=== PATIENT | female | born 1960 | race Caucasian/White ===

== ENCOUNTER 2024-05-25 09:47 | Day surgery (SDC) | payer BC ==
[~2024-05-25] VITALS: Ht 167.6 cm; Wt 55.5 kg
[~2024-05-25 09:47] MED LIST: AMBIEN5 MG PO; CENTRUM SILVER1 EAC5 PO; DICLOFENAC SODI75 MG PO; FERROUS SULFAT325 MG PO; HYDROCODON-ACE1 EA10 PO; IBLOOD GLUCOSE TEST STRIP 1 EA TEST VI PRN; LACTATED RINGER'S 1,000 ML IV SCH; LEVOTHYROXINE137 MC1 PO; LIDOCAINE HCL 1% 5 ML SDV INJ ONE; LIDOCAINE HCL 4% 50 ML BTL TOP SCH; LISINOPRIL20 MG PO; TART CHERRY CA1 EACH PO; TUMS300 MG PO; TURMERIC500 M2 PO
[2024-05-25 10:03] VITALS: BP 154/73
[2024-05-25] MEDS ORDERED: [UNRECOGNIZED DRUG - OTHER] PO (10:07)
[2024-05-25] MEDS ORDERED: VITAMIN C 500500 M1 PO (10:08)
[2024-05-25] MEDS ORDERED: fentaNYL citrate 100 MCG/2 ML VIAL ONE (10:42)
[2024-05-25] MEDS ORDERED: MIDAZOLAM HCL 5 MG/5 ML VIAL ONE (10:42)
--- NOTE | 2024-05-25 11:22 | NUR ---
05/25/24 1122 Smita Sebastian 1117- PT ARRIVES TO PACU REACTIVE TO VOICE. PT UPDATED THAT HER PROCEDURE IS COMPLETE. PT FALLS BACK TO SLEEP WHEN NOT BEING TALKED TO. RESP EVEN AND UNLABORED. OXYGEN SAT HIGH 90'S TO 100% ON 3L VIA CO2 NC.
[2024-05-25 12:03] VITALS: BP 136/59
--- NOTE | 2024-05-28 13:20 | OR ---
[facility] [address] [place], [place] [address] Signed DATE OF OPERATION: 05/25/2024 SURGEON: David Yang MD PREOPERATIVE DIAGNOSES: Anemia, weight loss 35 pounds, postprandial abdominal pain and CT findings suggestive of possible ulcer or neoplasm. POSTOPERATIVE DIAGNOSIS: Neoplasm of proximal stomach including area of GE junction. PROCEDURE: Esophagogastroduodenoscopy with biopsy. ANESTHESIA: Intravenous sedation; fentanyl 100 mcg and Versed 3 mg. INDICATION: This 64-year-old white woman is a patient of Dr. Jb Ramirez. The patient is noted to have anemia, weight loss, epigastric pain and a CT scan performed on May 10 under the direction of Dr. Ramirez showing possible ulcer or neoplasm of the body of the stomach. The patient has lost 35 pounds, having gone from 160 to 125 pounds over a few months. She is admitted to undergo upper endoscopy to better characterize the problem and in particular to assess for neoplastic disease. The risk of bleeding, infection, perforation, and so forth were reviewed with her. She understands and wished to proceed. FINDINGS: Indeed there was a gastric neoplasm. This was in the main body of the stomach with some amount of antral sparing and extending up to the GE junction. It did not extend into the esophagus so far as could be told. It is certainly consistent with adenocarcinoma, though the possibility of lymphoma remains. CLOtest was negative 15 minutes post procedure. The duodenum and esophageal mucosa proper were normal. PROCEDURE IN DETAIL: The patient was brought to the endoscopy suite and placed in the lateral decubitus position after undergoing topical lidocaine hypopharyngeal anesthesia. A bite block was placed. An Olympus video upper endoscope was passed in the hypopharynx. The vocal cords were normal. Scope was advanced to the esophagus, throughout its length it was normal. Scope was passed in the stomach without problem. Immediately noted was a bulky flattened and somewhat ulcerated and friable neoplasm of the mid to upper stomach. The Electronically Signed By: DAVID YANG MD 05/28/24 1320 PATIENT NAME: ANIBAL TATE OPERATIVE REPORT DATE OF : 60 REPORT #: [id number] PHYSICIAN: DAVID YANG MD PCP: JB RAMIREZ MD REPORT IS CONFIDENTIAL AND NOT TO BE RELEASED WITHOUT AUTHORIZATION [facility] [address] [place], [place] [address] Signed scope was passed beyond this to the antrum which seemed reasonably normal. The pylorus was normal. Scope was passed through into the duodenal which was normal. The scope was withdrawn and biopsies taken of the antrum for both JACKSON and pathologic testing. Retroflexed view was undertaken confirming the ulcerated neoplastic process extending up to the GE junction. The scope was withdrawn and positioned allowing for multiple biopsies of the central portion of the mass which was friable and easily made to bleed. The scope was withdrawn and close inspection of the GE junction proper did show involvement in this area, though the mucosa of the esophagus proper appeared normal. Biopsies were obtained in the distal most esophagus at the GE junction and esophageal mucosa proximal to that. Further withdrawal of scope showed no sign of other abnormality. The scope was fully withdrawn and removed. The patient was taken to the recovery room in good condition. 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 PLAN: Depending on findings of the biopsy, further steps for management will be in order. We will obtain a chest x-ray today to assess for any metastatic disease to the lungs, which would preclude resectional therapy. MD CLARA Venegas/MODL /[id number] cc: Jb Ramirez MD Copies: JB RAMIREZ MD ~ Electronically Signed By: DAVID YANG MD 05/28/24 1320 PATIENT NAME: ANIBAL TATE OPERATIVE REPORT DATE OF : 60 REPORT #: [id number] PHYSICIAN: DAVID YANG MD PCP: JB RAMIREZ MD REPORT IS CONFIDENTIAL AND NOT TO BE RELEASED WITHOUT AUTHORIZATION
--- NOTE | 2024-06-01 15:35 | PATH ---
[facility] [address] [place], [place] [address] Signed THIS IS AN ADDENDUM REPORT SPECIMEN(S): A ANTRUM/PYLORUS BIOPSY SPECIMEN(S): B PROXIMAL GASTRIC BIOPSY SPECIMEN(S): C GE JUNCTION SPECIMEN(S): D ESOPHAGEAL BIOPSY AT 35 CM SPECIMEN SOURCE: A. ANTRUM/PYLORUS BIOPSY B. PROXIMAL GASTRIC BIOPSY C. GE JUNCTION D. ESOPHAGEAL BIOPSY AT 35 CM CLINICAL HISTORY: Anemia, weight loss, epigastric pain, neoplasm proximal stomach FINAL PATHOLOGIC DIAGNOSIS: A. Antrum/pylorus biopsy: - Antral mucosa with superficial mild chronic inflammation. - Helicobacter pylori immunostain is negative for organisms. B. Proximal gastric biopsy: - Suspicious for carcinoma in ulcer base. - Gastric mucosa with mild foveolar hyperplasia and mild chronic inflammation. - A Helicobacter pylori immunostains is negative for organisms. - A cytokeratin AE1/AE3 immunostain is positive in cells within the ulcer and inflammation, suspicious for carcinoma. C. GE junction: - Positive for invasive carcinoma (see comment). - Negative for specialized intestinal metaplasia. - A Cytokeratin AE1/AE3 immunostain highlights the tumor cells. D. Esophageal biopsy at 35 cm: - Benign esophageal mucosa, negative for increased epithelial eosinophils. COMMENT: (Specimen C) The histologic and immunohistochemical features are compatible with Diffuse-type gastric adenocarcinoma. As part of the [facility] [employer] Program, the case has been reviewed by a second pathologist. Microsatellite testing by immunohistochemistry is pending and will be reported in an addendum. Diagnostic notification to the office of Dr. Zamudio is initiated by PATIENT NAME: ANIBAL TATE PATHOLOGY DATE OF : 60 REPORT #: [id number] PHYSICIAN: MAR CARRENO PCP: JB LAST MD REPORT IS CONFIDENTIAL AND NOT TO BE RELEASED WITHOUT AUTHORIZATION [facility] [address] [place], [place] [address] Signed Ary and will be reported separately. JVR:[facility] MICROSCOPIC EXAMINATION: Histologic sections of all submitted blocks are examined by light microscopy. These findings, together with the gross examination, support the pathologic diagnosis. A. A Helicobacter pylori immunostain is performed with appropriate positive and negative controls on block A1 and is negative for organisms. A cytokeratin AE1/AE3 immunostain is performed with appropriate controls on block A1 and is negative for occult carcinoma. B. A Helicobacter pylori immunostain is performed with appropriate positive and negative controls on block B1 and is negative for organisms. A cytokeratin AE1/AE3 immunostain is performed with appropriate controls on block B1 and highlights scattered cells suspicious for carcinoma. C. Immunostains are performed with appropriate controls on block C1 and shows the following: - CDX2: Positive in tumor nuclei. - Cytokeratin 7: Negative in tumor cells. - Chromogranin: Negative in tumor cells. - Synaptophysin: Negative in tumor cells. - P63: Negative in tumor nuclei. JVR:jc GROSS DESCRIPTION: A. The specimen, labeled and designated "Post, antrum biopsy," is received in formalin and consists of one lou soft tissue fragment, 0.2 cm. Entirely submitted in (A1). B. The specimen, labeled and designated "Post, proximal gastric mass biopsy," is received in formalin and consists of five lou soft tissue fragments, ranging from 0.1-0.3 cm. Entirely submitted in (B1). C. The specimen, labeled and designated "Post, GE junction biopsy," is received in formalin and consists of seven lou soft tissue fragments, ranging from 0.1 to 0.2 cm. Entirely submitted in (C1). D. The specimen, labeled and designated "Post, esophagus biopsy at 35 cm," is received in formalin and consists of one lou soft tissue fragment, 0.4 cm. Entirely submitted in (D1). JS (under the direct supervision of a pathologist) PATIENT NAME: ANIBAL TATE PATHOLOGY DATE OF : 60 REPORT #: [id number] PHYSICIAN: MAR PATHOLOGY PCP: JB LAST MD REPORT IS CONFIDENTIAL AND NOT TO BE RELEASED WITHOUT AUTHORIZATION [facility] [address] [place] [id number] Signed The Gross Description was prepared using a voice recognition system. The report was reviewed for accuracy; however, sound-alike word errors, addition and/or deletions may occur. If there is any question about this report, please contact Client Services. ADDITIONAL NOTES: Immunohistochemical and/or in situ hybridization studies were performed on this case with the appropriate positive controls that react as expected. This test was developed and its performance characteristics determined by [facility]. It has not been cleared or approved by the U.S. Food and Drug Administration. The FDA has determined that such clearance or approval is not necessary. This test is used for clinical purposes. It should not be regarded as investigational or for research. [facility] is certified under the Clinical Laboratory Improvement Amendments of 1988 (CLIA) as qualified to perform high complexity clinical laboratory testing. This assay has not been validated for specimens that have been decalcified. PERFORMING LABORATORY: Technical component was performed by [facility], [address] [place] [address] (CLIA# [id number]). Professional interpretation was performed by [facility], [address] [place], [place] [address], [place] [address] (CLIA#: [id number]). COMMENT: Tumor cells show no loss of nuclear expression of MMR proteins. This correlates with a low probability of microsatellite instability. However, if there is a high clinical suspicion for Elena syndrome (hereditary non-polyposis colorectal carcinoma syndrome) in this patient, additional testing should be considered. Please contact [facility] if such testing is indicated. JVR:cml ADDITIONAL NOTES: Immunohistochemical and/or in situ hybridization studies were performed on this case with the appropriate positive controls that react as expected. This test was developed and its performance characteristics determined by [facility]. It has not been cleared or approved by the U.S. Food and Drug Administration. The FDA has determined that such clearance or approval is not necessary. This test is used for clinical purposes. It should not be regarded PATIENT NAME: ANIBAL TATE PATHOLOGY DATE OF : 60 REPORT #: [id number] PHYSICIAN: MAR CARRENO PCP: JB LAST MD REPORT IS CONFIDENTIAL AND NOT TO BE RELEASED WITHOUT AUTHORIZATION [facility] [address] [place], [place] [address] Signed as investigational or for research. [facility] is certified under the Clinical Laboratory Improvement Amendments of 1988 (CLIA) as qualified to perform high complexity clinical laboratory testing. REASON FOR ADDENDUM: To add results of additional testing. ADDENDUM PATHOLOGIC DIAGNOSIS: GE junction, diffuse type adenocarcinoma, microsatellite instability testing by IHC: - MLH1: Intact nuclear expression. - MSH2: Intact nuclear expression. - MSH6: Intact nuclear expression. - PMS2: Intact nuclear expression. INTERPRETATION: Normal pattern. ADDENDUM MICROSCOPIC EXAMINATION: A panel of four antibodies is selected which will detect 95% of microsatellite unstable carcinomas. Testing is performed at the request of Jamil Mcallister MD. Block: C1. Recut HE slide is prepared from the block. The presence of neoplastic glands and non-neoplastic internal control glands or stroma is confirmed. Internal control cells for MLH1, MSH2, PMS2 and MSH6 are positive. Neoplastic gland cells show the following: - MLH1: Positive. - MSH2: Positive. - MSH6: Positive. - PMS2: Positive. JVR:cml [place]. Professional interpretation was performed by [facility], [address] [place] [id number] (CLIA#: [id number]). Diagnostician: Jamil Mcallister MD Pathologist Electronically Signed 06/01/2024 Copies: PATIENT NAME: ANIBAL TATE DAAN PATHOLOGY DATE OF : 60 REPORT #: [id number] PHYSICIAN: MAR PATHOLOGY PCP: JB LAST MD REPORT IS CONFIDENTIAL AND NOT TO BE RELEASED WITHOUT AUTHORIZATION [address] [place] [address] Signed ~ PATIENT NAME: ANIBAL TATE DANA PATHOLOGY DATE OF : 60 REPORT #: [id number] PHYSICIAN: MAR PATHOLOGY PCP: JB LAST MD REPORT IS CONFIDENTIAL AND NOT TO BE RELEASED WITHOUT AUTHORIZATION
== END 2024-05-25 12:11 | disposition home or self-care (01) ==
LOC: DS 09:47
PROVIDERS: ATTEND Surgery
PROC: 0DB38ZX Excision of Lower Esophagus, Via Natural or Artificial Opening Endoscopic, Diagnostic (ICD-10-PCS; 2024-05-25)
PROC: 0DB48ZX Excision of Esophagogastric Junction, Via Natural or Artificial Opening Endoscopic, Diagnostic (ICD-10-PCS; 2024-05-25)
PROC: 0DB98ZX Excision of Duodenum, Via Natural or Artificial Opening Endoscopic, Diagnostic (ICD-10-PCS; principal; 2024-05-25 10:45)
DX: C16.0 Malignant neoplasm of cardia (principal); K31.89 Other diseases of stomach and duodenum; D64.9 Anemia, unspecified; R63.4 Abnormal weight loss; E03.9 Hypothyroidism, unspecified; I10 Essential (primary) hypertension; Z68.1 Body mass index [BMI] 19.9 or less, adult; Z79.890 Hormone replacement therapy; Z79.899 Other long term (current) drug therapy
CPT/HCPCS: 71045; 99153; G0500; J2250; J3010; J7121

== ENCOUNTER 2024-06-12 07:54 | Day surgery (SDC) | payer BC ==
[~2024-06-12] VITALS: Ht 167.6 cm; Wt 55.0 kg
[~2024-06-12 07:54] MED LIST changes: +CEFAZOLIN SODIUM 2 GM/20 ML SYR IV SCH; +DEXAMETHASONE SOD PHOS 4 MG/ML VIAL ONE; +FAMOTIDINE 20 MG/ 2 ML VIAL ONE; +HEParin SOD (PORCINE) 5,000 UNIT/0.5 ML SYR SUB-Q SCH; +KETOROLAC TROMETHAMINE 30 MG/ML VIAL ONE; +LACTATED RINGER'S 1,000 ML IV ONE; -LEVOTHYROXINE137 MC1 PO; +LEVOTHYROXINE150 MC1 PO; +LIDOCAINE HCL 4% 5 ML AMP ONE; -LIDOCAINE HCL 4% 50 ML BTL TOP SCH; +METOCLOPRAMIDE HCL 10 MG/2 ML SDV ONE; +MIDAZOLAM HCL 2 MG/2 ML VIAL ONE; +ROCURONIUM BROMIDE 50 MG/5 ML SYR ONE; +SUCCINYLCHOLINE IN 0.9% NACL 200 MG/10 ML SYRINGE ONE; +SUGAMMADEX SODIUM 200 MG/2 ML ML ONE; +VITAMIN C 500500 M1 PO; +[UNRECOGNIZED DRUG - OTHER] PO; +fentaNYL citrate 100 MCG/2 ML VIAL ONE; +ondansetron HCL 4 MG/2 ML VIAL ONE; +propofoL 200 MG/20 ML VIAL ONE
[2024-06-12 08:28] VITALS: BP 130/79
[2024-06-12] MEDS ORDERED: PROCHLORPERAZINE EDISYLATE 10 MG/2 ML VIAL IV PRN (08:45)
[2024-06-12] MEDS ORDERED: NALOXONE HCL 0.4 MG SYR IV PRN ×2 (08:45→10:45)
[2024-06-12] MEDS ORDERED: MORPHINE SULFATE 10 MG/ML VIAL IV PRN (08:45)
[2024-06-12] MEDS ORDERED: droPERidol 5 MG/2 ML VIAL IV PRN (08:45)
[2024-06-12] MEDS ORDERED: METOCLOPRAMIDE HCL 10 MG/2 ML SDV IV PRN (08:45)
[2024-06-12] MEDS ORDERED: IBLOOD GLUCOSE TEST STRIP 1 EA TEST VI PRN (08:45)
[2024-06-12] MEDS ORDERED: ondansetron HCL 4 MG/2 ML VIAL IV PRN (08:45)
[2024-06-12] MEDS ORDERED: fentaNYL citrate 50 MCG/ML SDV IV PRN (08:45)
[2024-06-12 09:16] LABS: HEMATOCRIT 28.7 % (35.0-50.0); HEMOGLOBIN 8.8 g/dL (12.0-18.0); MCH 20.3 (27-36); MCHC 30.5 g/dl (30-36); MCV 66.5 fl (81-99); PLATELET COUNT 412 K/uL (140-440); RBC 4.32 M/ul (4.3-5.7)
[2024-06-12 09:25] LABS: EOSINOPHILS, MANUAL DIFF 1; LYMPHOCYTES, MANUAL DIFF 17; MONOCYTES, MANUAL DIFF 4; NEUTROPHILS, MANUAL DIFF 78
[2024-06-12] MEDS ORDERED: ePHEDrine sulfate 50 MG/ML AMP ONE (09:43)
--- NOTE | 2024-06-12 10:36 | NUR ---
06/12/24 Shayan6 Beverley Rehman 1029-PATIENT ARRIVED TO PACU ON 6L MASK NONAROUSABLE RN DOING JAW THRUST TO MAINTAIN OPEN AIRWAY. ORAL AIRWAY IN PLACE. RR EVEN. SR HR 80'S. IVF INFUSING. 3 LAP SITES TO ABDOMEN INTACT.
[2024-06-12] MEDS ORDERED: OXYCODONE/APAP 7.5/325 TAB PO PRN (10:45)
[2024-06-12] MEDS ORDERED: IBUPROFEN 600 MG TAB PO PRN (10:45)
[2024-06-12] MEDS ORDERED: LACTATED RINGER'S 1,000 ML IV SCH (10:45)
[2024-06-12] MEDS ORDERED: ACETAMINOPHEN 500 MG TAB PO PRN (10:45)
[2024-06-12] MEDS ORDERED: ACETAMINOPHEN500 MG PO (10:47)
[2024-06-12] MEDS ORDERED: OXYCODON-ACETA1 EAC2 PO (10:48)
[2024-06-12] MEDS ORDERED: PROTONIX40 MG PO (10:48)
[2024-06-12 11:15] VITALS: BP 132/73
--- NOTE | 2024-06-12 12:07 | NUR ---
LE 1150 PT C/O ABD PAIN 04/18. WATER AND APPLESAUCE GIVEN. 1200 OXYGEN TURNED OFF. 1201 ONE PERCOCET 7.5/325 GIVEN PO. 1206 OXYGEN SATS 100% ON RA. OXYGEN REMOVED PER PT REQUEST.
[2024-06-12 12:20] VITALS: BP 112/75
[2024-06-12] MEDS ORDERED: ondansetron HCL 4 MG/2 ML VIAL IV ONE (14:00)
--- NOTE | 2024-06-12 15:12 | NUR ---
1115: PATIENT BACK IN DAY SURGERY ROOM FROM PACU. DROWSY. PATIENT WILL WAKE TO VOICE, BUT UNABLE TO STAY AWAKE. RATES PAIN 5/10 IN ABDOMEN. VS CHECKED. ABDOMINAL SITES WITH SMALL AMOUNT OF RED DRAINAGE AT EACH SITE. SCDs ON. IV SITE WNL. DAUGHTER AT BEDSIDE. PATIENT RESTING. CALL LIGHT WITHIN REACH. 1220: PATIENT MORE AWAKE AND ALERT. STATES PAIN IMPROVING SINCE PAIN PILL ADMIN. TOLERATING APPLESAUCE AND WATER. DAUGHTER AT BEDSIDE. CALL LIGHT WITHIN REACH.
--- NOTE | 2024-06-12 15:23 | NUR ---
1250: PATIENT ASSISTED OOB AND TO BATHROOM. VOID WITHOUT DIFFICULTY. GAIT STEADY TO AND FROM BATHROOM. PATIENT REQUESTS MORE TIME TO REST BEFORE GETTING DRESSED. PATIENT BACK IN BED. CALL LIGHT WITHIN REACH. DAUGHTER AT BEDSIDE. 1310: DISCHARGE INSTRUCTIONS GIVEN TO PATIENT AND DAUGHTER. 1340: PATIENT ATTEMPTED TO GET DRESSED, BUT THEN HAD ONSET OF NAUSEA WITH DRY HEAVES. DR. YANG NOTIFIED. NEW ORDER RECEIVED FOR IV ZOFRAN. 1400: IV ZOFRAN GIVEN SLOW IVP. IV FLUSHED, THEN DC'D WNL. TIP INTACT. DRESSING APPLIED. 1405: PATIENT DISCHARGED TO HOME WITH DAUGHTER VIA WHEELCHAIR.
--- NOTE | 2024-06-26 15:47 | PATH ---
[facility] [address] [facility] [place], [place] [address] Signed SPECIMEN(S): A STOMACH BIOPSY SPECIMEN(S): B OMENTUM BIOPSY SPECIMEN(S): C DIAPHRAM BIOPSY SPECIMEN SOURCE: A. STOMACH BIOPSY B. OMENTUM BIOPSY C. DIAPHRAM BIOPSY CLINICAL HISTORY: Adenocarcinoma of stomach. FINAL PATHOLOGIC DIAGNOSIS: A. Stomach biopsy: - Adenocarcinoma with infiltration of the muscularis propria. B. Omentum biopsy: - Adenocarcinoma consistent with that noted in the stomach biopsy. C. Diaphragm biopsy: - Adenocarcinoma with focal lymphovascular involvement, similar to that noted in specimens A and B. COMMENT: Microsatellite Instability Testing by Immunohistochemistry was performed on the previous biopsy and showed a "Normal Pattern" ([id number]). As part of [facility] Quality Improvement Program, this case was reviewed by another member of our pathology staff. JVR:BRADEN:shannan:genna MICROSCOPIC EXAMINATION: Histologic sections of all submitted blocks are examined by light microscopy. These findings, together with the gross examination, support the pathologic diagnosis. Immunostains are performed with appropriate controls and show the following: Block A1: - CDx2: Positive in tumor nuclei. - Cytokeratin AE1/AE3: Positive in tumor cells. - Synaptophysin: Negative in tumor cells. - Chromogranin: Negative in tumor cells. Block B1: - Cytokeratin AE1/AE3: Positive in tumor cells. - CDx2: Positive in tumor nuclei. PATIENT NAME: ANIBAL TATE DANA PATHOLOGY DATE OF : 60 REPORT #: [id number] PHYSICIAN: MAR CARRENO PCP: JB LAST MD REPORT IS CONFIDENTIAL AND NOT TO BE RELEASED WITHOUT AUTHORIZATION [facility] [address] [place], [place] [address] Signed Block C1: - Cytokeratin AE1/AE3: Positive in tumor cells. - CDx2: Positive in tumor nuclei. JVR:shannan GROSS DESCRIPTION: A. The specimen, labeled and designated "Post, stomach biopsy," is received in formalin and consists of three pink-lou, soft tissue fragments that measure 0.1 cm in greatest dimension each. Specimen is inked with eosin. Entirely submitted in (A1). B. The specimen, labeled and designated "Post, omentum biopsy," is received in formalin and consists of five pink-lou, needle core tissue fragments that range in size from 0.1 to 0.6 cm in length and up to 0.1 cm in diameter. Specimen is inked with eosin. Entirely submitted in (B1-B2). C. The specimen, labeled and designated "Post, diaphragm biopsy," is received in formalin and consists of four pink-lou, needle core tissue fragments that range in size from 0.1 to 0.6 cm in length and up to 0.1 cm in diameter. Specimen is inked with eosin. Entirely submitted in (C1-C2). JS (under the direct supervision of a pathologist) The Gross Description was prepared using a voice recognition system. The report was reviewed for accuracy; however, sound-alike word errors, addition and/or deletions may occur. If there is any question about this report, please contact Client Services. ADDITIONAL NOTES: Immunohistochemical and/or in situ hybridization studies were performed on this case with the appropriate positive controls that react as expected. This test was developed and its performance characteristics determined by [facility]. It has not been cleared or approved by the U.S. Food and Drug Administration. The FDA has determined that such clearance or approval is not necessary. This test is used for clinical purposes. It should not be regarded as investigational or for research. [facility] is certified under the Clinical Laboratory Improvement Amendments of 1988 (CLIA) as qualified to perform high complexity clinical laboratory testing. This assay has not been validated for specimens that have been decalcified. PERFORMING LABORATORY: PATIENT NAME: ANIBAL TATE PATHOLOGY DATE OF : 60 REPORT #: [id number] PHYSICIAN: MAR PATHOLOGY PCP: JB LAST MD REPORT IS CONFIDENTIAL AND NOT TO BE RELEASED WITHOUT AUTHORIZATION [facility] [address] [place], [place] [address] Signed Technical component was performed by [facility], [address] [place] [id number] (CLIA# [id number]). Professional interpretation was performed by [facility], [address] [place] [address], [place] [address] (CLIA#: [id number]). Diagnostician: Jamil Mcallister MD Pathologist Electronically Signed 06/26/2024 Copies: ~ PATIENT NAME: ANIBAL TATE DANA PATHOLOGY DATE OF : 60 REPORT #: [id number] PHYSICIAN: MAR PATHOLOGY PCP: JB LAST MD REPORT IS CONFIDENTIAL AND NOT TO BE RELEASED WITHOUT AUTHORIZATION
[2024-07-03] MEDS ORDERED: IBUPROFEN600 MG PO (09:02)
[2024-07-03] MEDS ORDERED: HYDROMORPHONE HC4 MG PO (09:03)
--- NOTE | 2024-07-07 09:55 | OR ---
[facility] [address] [place], [place] [address] Signed DATE OF OPERATION: 06/12/2024 SURGEON: David Yang MD PREOPERATIVE DIAGNOSES: Gastric adenocarcinoma with associated weight loss, abdominal pain and anemia. POSTOPERATIVE DIAGNOSIS: Intra-abdominal carcinomatosis. PROCEDURES: 1. Laparoscopy with peritoneal washings. 2. Laparoscopic biopsy of lesions of intraperitoneal space. ANESTHESIA: General endotracheal. INDICATION: This 64-year-old white woman is a patient of Dr. Jb Ramirez. She has had several months of increasing weight loss, anemia, and epigastric pain. She underwent upper endoscopy by ma recently, which confirmed adenocarcinoma of the stomach, which extended just below the GE junction distalward to the antrum. A CT scan showed no sign of metastatic lesions of the liver, but did show some enlargement of gastrohepatic lymph node tissue and low-grade ascites. I have recommended laparoscopy at this time to assess for staging and in particular to assess for appropriateness of chemotherapy prior to possible gastric resection. She understands as does her daughter the risk of bleeding, infection, and other unforeseen complications and wished to proceed. FINDINGS: Indeed there was carcinomatosis in the abdominal cavity. There was no sign of gross metastatic lesions of the liver proper, but there were multiple areas of the diaphragm bilaterally and lesser sac and mesenteric lesions consistent with carcinomatosis. She showed no sign of bowel obstruction. Stomach itself was somewhat firm in texture, but without sign of obstructive process. DESCRIPTION OF PROCEDURE: The patient was brought to the operating room, given a general endotracheal anesthetic. Preoperative antibiotic Ancef was given. Sequential compression device stockings were used. The abdomen was prepared with chlorhexidine solution and draped sterilely. Abdominal palpation revealed no sign of palpable mass. An infraumbilical incision was Electronically Signed By: DAVID YANG MD 07/07/24 0955 PATIENT NAME: ANIBAL TATE OPERATIVE REPORT DATE OF : 60 REPORT #: [id number] PHYSICIAN: DAVID YANG MD PCP: JB RAMIREZ MD REPORT IS CONFIDENTIAL AND NOT TO BE RELEASED WITHOUT AUTHORIZATION [facility] [address] [place], [place] [address] Signed made and using an open Gagan cannula technique pneumoperitoneum was achieved to a level of 14 mmHg of carbon dioxide gas. Intra-abdominal inspection showed small amount of ascites but none of it was bloody. Examination of the upper abdomen confirmed normal-appearing liver but stomach which was somewhat inflamed and with small nodules on its surface suggestive of carcinomatosis. An epigastric 12 mm port was placed as well as a right subcostal 5 mm port. Two hand manipulation allowed for examination of the lesser sac by elevating the left lateral segment of the liver. This confirmed a plastic like lesion of the lesser sac, quite clearly sign of advanced gastric carcinoma. In addition, examination of bowel showed mesenteric carcinomatosis as well. There was no sign of impending bowel obstruction anywhere. There were inflammatory adhesions in the right upper quadrant, one of which was biopsied. Peritoneal lavage was undertaken prior to that with specimen collection to allow for assessment for cytology. Several areas were biopsied with a cup biopsy device indicative of carcinomatosis. Irrigation was undertaken and once satisfied, there was no bleeding or other problem. The trocars were removed under direct visualization showing no sign of bleeding. The infraumbilical fascial incision was reapproximated with interrupted 0 Vicryl suture. Irrigation was undertaken. Skin was closed with interrupted 3-0 Vicryl. Steri-Strips were applied. The patient was ultimately extubated and transferred to the recovery room in good condition having suffered no complication. Sponge, needle and instrument counts were reported as correct x3. David Yang MD /MODL /[id number] cc: Jb Ramirez MD Copies: JB RAMIREZ MD ~ Electronically Signed By: DAVID YANG MD 07/07/24 0955 PATIENT NAME: ANIBAL TATE DANA OPERATIVE REPORT DATE OF : 60 REPORT #: [id number] PHYSICIAN: DAVID YANG MD PCP: JB RAMIREZ MD REPORT IS CONFIDENTIAL AND NOT TO BE RELEASED WITHOUT AUTHORIZATION
== END 2024-06-12 14:05 | disposition home or self-care (01) ==
LOC: DS 07:54
PROVIDERS: ATTEND Surgery
PROC: 3E1M38X Irrigation of Peritoneal Cavity using Irrigating Substance, Percutaneous Approach, Diagnostic (ICD-10-PCS; principal; 2024-06-12 09:30)
DX: C16.0 Malignant neoplasm of cardia (principal); C16.9 Malignant neoplasm of stomach, unspecified; K29.50 Unspecified chronic gastritis without bleeding; I10 Essential (primary) hypertension; R63.4 Abnormal weight loss
CPT/HCPCS: 00790; 36415; 80053; 85025; J0330; J0690; J1100; J1644; J1885; J2250; J2405; J2704; J2765; J3010; J3490; J7121

== ENCOUNTER 2024-09-27 10:31 | Day surgery (SDC) | payer BC ==
[~2024-09-27] VITALS: Ht 165.1 cm; Wt 54.5 kg
[~2024-09-27 10:31] MED LIST changes: +ACETAMINOPHEN500 MG PO; -CEFAZOLIN SODIUM 2 GM/20 ML SYR IV SCH; -DEXAMETHASONE SOD PHOS 4 MG/ML VIAL ONE; -FAMOTIDINE 20 MG/ 2 ML VIAL ONE; -HEParin SOD (PORCINE) 5,000 UNIT/0.5 ML SYR SUB-Q SCH; +HYDROMORPHONE HC4 MG PO; +IBUPROFEN600 MG PO; -KETOROLAC TROMETHAMINE 30 MG/ML VIAL ONE; -LACTATED RINGER'S 1,000 ML IV ONE; -LIDOCAINE HCL 4% 5 ML AMP ONE; +LIDOCAINE HCL 4% 50 ML BTL TOP SCH; -METOCLOPRAMIDE HCL 10 MG/2 ML SDV ONE; -MIDAZOLAM HCL 2 MG/2 ML VIAL ONE; +MIDAZOLAM HCL 5 MG/5 ML VIAL IV PRN; +OXYCODON-ACETA1 EAC2 PO; +PROTONIX40 MG PO; -ROCURONIUM BROMIDE 50 MG/5 ML SYR ONE; -SUCCINYLCHOLINE IN 0.9% NACL 200 MG/10 ML SYRINGE ONE; -SUGAMMADEX SODIUM 200 MG/2 ML ML ONE; +fentaNYL citrate 100 MCG/2 ML VIAL IV PRN; -fentaNYL citrate 100 MCG/2 ML VIAL ONE; -ondansetron HCL 4 MG/2 ML VIAL ONE; -propofoL 200 MG/20 ML VIAL ONE
[2024-09-27 10:45] VITALS: BP 136/76
[2024-09-27] MEDS ORDERED: MULTI VITAMIN1 EACH PO (10:47)
[2024-09-27] MEDS ORDERED: CALCIUM 250-D1 EACH PO (10:48)
[2024-09-27] MEDS ORDERED: fentaNYL citrate 100 MCG/2 ML VIAL ONE (13:19)
[2024-09-27] MEDS ORDERED: MIDAZOLAM HCL 5 MG/5 ML VIAL ONE (13:20)
--- NOTE | 2024-09-27 14:00 | NUR ---
09/27/24 1400 Beverley Rehman 1355-PATIENT ARRIVED TO PACU ON 2L NC RR EVEN LAYING LEFT LATERAL PATIENT AROUSING OPENING EYES DENIES PAIN OR NAUSEA. HOB IS ELEVATED DOZES BACK TO SLEEP. IVF INFUSING
[2024-09-27 14:30] VITALS: BP 130/79
--- NOTE | 2024-10-04 11:35 | OR ---
[facility] [address] [place], [place] [address] Signed DATE OF OPERATION: 09/27/2024 SURGEON: David Yang MD PREOPERATIVE DIAGNOSIS: Stage IV gastric carcinoma status post chemotherapy and immunologic therapy by Dr. Trevizo. POSTOPERATIVE DIAGNOSIS: Persistent but improved gastric neoplasm proximal 2/3rd of stomach. CLOtest negative at 15 minutes post procedure. PROCEDURE: Esophagogastroduodenoscopy with biopsy. VET ASSISTANT: Jose Armando Yang MD INDICATION: This 64-year-old white woman presented to me several months ago with weight loss, anemia, and episodic blood per rectum. Upper endoscopy confirmed gastric carcinoma. Subsequent laparoscopy showed carcinomatosis, involvement of lymph nodes in the omentum and diaphragmatic metastatic disease rendering her ineligible for resection. She is under the care of Dr. Lexii Trevizo including chemotherapy and probably immunologic therapy. She has been referred for repeat upper endoscopy to better characterize her response of the tumor and so on. She understands the risk of upper endoscopy including but not limited to bleeding, infection, and perforation and wished to proceed. FINDINGS: Esophagus and duodenum were normal. The stomach still had a proximal 2/3rd neoplastic process, but it was certainly not ulcerated nor bleeding and was improved. CLOtest for H pylori remains negative. DESCRIPTION OF PROCEDURE: The patient was brought to the endoscopy suite and given lidocaine topical hypopharyngeal anesthesia and placed in the lateral decubitus position. She was given intravenous sedation to the point of slurred speech and nystagmus with full cardiopulmonary monitoring. A bite block was placed. Electronically Signed By: DAVID YANG MD 10/04/24 1135 PATIENT NAME: ANIBAL TATE OPERATIVE REPORT DATE OF : 60 REPORT #: [id number] PHYSICIAN: DAVID YANG MD PCP: JB RAMIREZ MD REPORT IS CONFIDENTIAL AND NOT TO BE RELEASED WITHOUT AUTHORIZATION [facility] [address] [place], [place] [address] Signed An Olympus video upper endoscope was passed in the hypopharynx. The vocal cords were found to be normal. Scope was advanced to the esophagus. Throughout its length, it was normal. Scope was passed to the stomach which was insufflated with air with some amount of bile. There was distortion from neoplastic change of the proximal stomach, but the mid and distal portion appeared more normal. Antrum was normal. Scope was passed through the normal-appearing pylorus into the duodenal which was normal. The scope was withdrawn and biopsies were taken of the antrum and subsequently biopsies of the neoplastic process in the mid to upper stomach. CLOtest biopsies were taken as well. Retroflexed view showed the GE junction to be minimally involved. The scope was withdrawn to the distal esophagus which was entirely normal. The remaining esophagus was normal as well. The scope was removed and the patient was taken to the recovery room in good condition. CONCLUDING DIAGNOSIS: Persistent gastric neoplasm, but much more " " without sign of ulceration and definite improvement related to palliative therapy. PLAN: She will return to the ongoing care of Dr. Trevizo and Dr. Ramirez. She is not eligible for resection on the basis of her stage IV disease at presentation but continued palliative therapy likely will be greatly beneficial to her. David Yang MD JM/MODL /[id number] cc: MD Lexii Foreman MD Patrick J. Mcbee, MD, PANKAJ Garcia Copies: JB RAMIREZ MD Electronically Signed By: DAVID YANG MD 10/04/24 1135 PATIENT NAME: ANIBAL TATE DANA OPERATIVE REPORT DATE OF : 60 REPORT #: [id number] PHYSICIAN: DAVID YANG MD PCP: JB RAMIREZ MD REPORT IS CONFIDENTIAL AND NOT TO BE RELEASED WITHOUT AUTHORIZATION [facility] [address] [place], [place] [address] Signed LEXII TREVIZO MD ~ Electronically Signed By: DAVID YANG MD 10/04/24 1135 PATIENT NAME: ANIBAL TATE OPERATIVE REPORT DATE OF : 60 REPORT #: [id number] PHYSICIAN: DAVID YANG MD PCP: JB RAMIREZ MD REPORT IS CONFIDENTIAL AND NOT TO BE RELEASED WITHOUT AUTHORIZATION
--- NOTE | 2024-10-04 16:54 | PATH ---
[facility] [address] [place], [place] [address] Signed SPECIMEN(S): A ANTRUM/PYLORUS BIOPSY SPECIMEN(S): B PROXIMAL STOMACH BIOPSY SPECIMEN SOURCE: A. ANTRUM/PYLORUS BIOPSY B. PROXIMAL STOMACH BIOPSY CLINICAL HISTORY: History of adenocarcinoma of stomach. Surveillance scope FINAL PATHOLOGIC DIAGNOSIS: A. Antrum/pylorus, biopsy: - Fragments of benign gastric and small bowel mucosa with focal superficial mild atypical features, indefinite for mild dysplasia (adenoma). - Focal mild chronic inflammation. - Negative for high grade dysplasia or malignancy. - Negative for evidence of Helicobacter organisms on immunostained sections. B. Proximal stomach, biopsy: - Gastric type mucosa with foveolar hyperplasia and moderate chronic stromal inflammation. - A Helicobacter pylori immunostain is negative for organisms. - Negative for dysplasia or malignancy. JVR:cml MICROSCOPIC EXAMINATION: Histologic sections of all submitted blocks are examined by light microscopy. These findings, together with the gross examination, support the pathologic diagnosis. A Helicobacter pylori immunostain is performed with appropriate positive and negative controls on block A1 and is negative for organisms. A Helicobacter pylori immunostain is performed with appropriate positive and negative controls on block B1 and is negative for organisms. A cytokeratin AE1/AE3 immunostain is performed with appropriate controls on blocks A1 and B1 and are negative for occult carcinoma. GROSS DESCRIPTION: A. The specimen, labeled and designated "Post, antrum biopsy," is received in formalin and consists of two lou soft tissue fragments, ranging from 0.2 cm. Entirely submitted in (A1). B. The specimen, labeled and designated "Post, proximal stomach biopsy," is received in formalin and consists of three lou soft tissue fragments, ranging PATIENT NAME: ANIBAL TATE PATHOLOGY DATE OF : 60 REPORT #: [id number] PHYSICIAN: MAR CARRENO PCP: JB LAST MD REPORT IS CONFIDENTIAL AND NOT TO BE RELEASED WITHOUT AUTHORIZATION [facility] [address] [place], [place] [address] Signed from 0.2 cm. Entirely submitted in (B1). JS (under the direct supervision of a pathologist) The Gross Description was prepared using a voice recognition system. The report was reviewed for accuracy; however, sound-alike word errors, addition and/or deletions may occur. If there is any question about this report, please contact Client Services. ADDITIONAL NOTES: Immunohistochemical and/or in situ hybridization studies were performed on this case with the appropriate positive controls that react as expected. This test was developed and its performance characteristics determined by [facility]. It has not been cleared or approved by the U.S. Food and Drug Administration. The FDA has determined that such clearance or approval is not necessary. This test is used for clinical purposes. It should not be regarded as investigational or for research. [facility] is certified under the Clinical Laboratory Improvement Amendments of 1988 (CLIA) as qualified to perform high complexity clinical laboratory testing. This assay has not been validated for specimens that have been decalcified. PERFORMING LABORATORY: Technical component was performed by [facility], [address] [place] [address] (CLIA# [id number]). Professional interpretation was performed by [facility], [address] [place] [id number] (CLIA#: [id number]). Diagnostician: Jamil Mcallister MD Pathologist Electronically Signed 10/04/2024 Copies: ~ PATIENT NAME: AHMET TATENESSA CORTEZ PATHOLOGY DATE OF : 60 REPORT #: [id number] PHYSICIAN: MAR PATHOLOGY PCP: JB LAST MD REPORT IS CONFIDENTIAL AND NOT TO BE RELEASED WITHOUT AUTHORIZATION
== END 2024-09-27 14:40 | disposition home or self-care (01) ==
LOC: DS 10:31
PROVIDERS: ATTEND Surgery
PROC: 0DB68ZX Excision of Stomach, Via Natural or Artificial Opening Endoscopic, Diagnostic (ICD-10-PCS; principal; 2024-09-27 12:00)
DX: C16.9 Malignant neoplasm of stomach, unspecified (principal); I10 Essential (primary) hypertension; E03.9 Hypothyroidism, unspecified; Z79.890 Hormone replacement therapy; Z79.899 Other long term (current) drug therapy
CPT/HCPCS: 99153; G0500; J2250; J3010; J7121

== ENCOUNTER 2025-03-01 06:00 | Day surgery (SDC) | payer BC ==
[~2025-03-01] VITALS: Ht 167.6 cm; Wt 52.3 kg
[~2025-03-01 06:00] MED LIST changes: +CALCIUM 250-D1 EACH PO; +FERROUS SULFAT324 MG PO; -IBLOOD GLUCOSE TEST STRIP 1 EA TEST VI PRN; -LACTATED RINGER'S 1,000 ML IV SCH; -LIDOCAINE HCL 1% 5 ML SDV INJ ONE; -LIDOCAINE HCL 4% 50 ML BTL TOP SCH; +LORAZEPAM1 MG PO; +MULTI VITAMIN1 EACH PO; +PERCOCET 7.5-31 EACH PO
[2025-03-01 06:17] VITALS: BP 136/80
[2025-03-01] MEDS ORDERED: GLUTAMINE PO (06:20)
[2025-03-01] MEDS ORDERED: VITAMIN B650 MG PO (06:20)
[2025-03-01] MEDS ORDERED: fentaNYL citrate 100 MCG/2 ML VIAL ONE (06:51)
[2025-03-01] MEDS ORDERED: MIDAZOLAM HCL 5 MG/5 ML VIAL ONE (06:51)
[2025-03-01] MEDS ORDERED: LIDOCAINE HCL 1% 5 ML SDV INJ ONE (07:00)
[2025-03-01] MEDS ORDERED: LIDOCAINE HCL 4% 50 ML BTL TOP SCH (07:00)
[2025-03-01] MEDS ORDERED: IBLOOD GLUCOSE TEST STRIP 1 EA TEST VI PRN (07:00)
[2025-03-01] MEDS ORDERED: LACTATED RINGER'S 1,000 ML IV SCH (07:00)
--- NOTE | 2025-03-01 08:09 | NUR ---
03/01/25 0809 Komal Caldwell 0759- PT PRESENTS TO PACU, LEFT LATERAL SEMI BAH POSITION. O2 AT 3L PER NC, BREATHING EVEN AND NON LABORED. LR INFUSING TO RFA IV. ABD SOFT, NON DISTENDED. PT NON REACTIVE TO STIMULUS, RESTING AT THIS TIME. ALL MONITORS IN PLACE.
[2025-03-01 08:38] VITALS: BP 123/82
--- NOTE | 2025-03-05 11:00 | OR ---
[facility] [address] [place], [place] [address] Signed DATE OF OPERATION: 03/01/2025 SURGEON: David Yang MD PREOPERATIVE DIAGNOSIS: History of stage IV gastric carcinoma, status post chemotherapy. POSTOPERATIVE DIAGNOSIS: Persistent gastric tumor mid upper stomach, but marked improvement of the antrum and elsewhere. PROCEDURE: Esophagogastroduodenoscopy with biopsy. ANESTHESIA: Intravenous sedation fentanyl 100 mcg and Versed 4 mg. INDICATION: This 64-year-old white woman is a patient of Dr. Ramirez and Dr. Trevizo as well. She underwent upper endoscopy on May 25, 2024 showing a bulking neoplasm of the stomach and ultimately laparoscopic evaluation showing carcinomatosis and extensive metastatic disease. She underwent palliative chemotherapy and immunotherapy which improved her symptoms quite markedly and allowed for cessation of her bleeding and anemia. She is able to eat without problem. She was referred for followup upper endoscopy in September 2024, which did show improvement of her gastric carcinoma. Imaging studies under the direction of Dr. Trevizo has shown improvement, but persistent disease. A change to conventional chemotherapy was undertaken in the past few months, which she is tolerating reasonably well. She is referred once again for surveillance upper endoscopy to assess the effect of therapy on neoplasm of the stomach proper. She is now to undergo upper endoscopy. The risk of bleeding, infection, perforation, and so forth were reviewed with her. She understands and wished to proceed. FINDINGS: Indeed the gastric tumor burden appeared clinically much less. There was definitely a neoplasm in the upper part of the stomach, but not near the GE junction itself. The antrum of the stomach, which was quite markedly involved before had edema and chronic inflammation but no neoplasm proper. CLOtest was negative. Esophagus and duodenum were normal. Electronically Signed By: DAVID YANG MD 03/05/25 [facility] PATIENT NAME: ANIBAL TATE OPERATIVE REPORT DATE OF : 60 REPORT #: [id number] PHYSICIAN: DAVID YANG MD PCP: JB RAMIREZ MD REPORT IS CONFIDENTIAL AND NOT TO BE RELEASED WITHOUT AUTHORIZATION [facility] [address] [place], [place] [address] Signed DESCRIPTION OF PROCEDURE: The patient was brought to the endoscopy suite, given topical lidocaine hypopharyngeal anesthesia. In the lateral decubitus position left side and she was given intravenous sedation to the point of slurred speech and nystagmus with full cardiopulmonary monitoring. A bite block was placed. An Olympus video upper endoscope was passed in the hypopharynx. The vocal cords were normal. The scope was advanced to the esophagus without problem. The esophagus throughout its length was normal. Scope was passed to the stomach which was insufflated with air. There was some friable tumor in the upper third of the stomach, but not at the GE junction proper. The scope was passed beyond this to the antrum, which showed chronic inflammatory change and edema, but no sign of bulky neoplasm as it had been before. The pylorus was normal. Scope was passed through it into the duodenum, which was normal. Biopsies taken of the duodenum. Scope was withdrawn and biopsies taken of the antrum for both JACKSON and pathologic testing. Retroflexed view was undertaken showing sparing of the GE junction. A somewhat ulcerated and friable mucosal mass was noted in the upper stomach. Biopsies were taken of the neoplasm. Scope was withdrawn. A biopsy was then taken of the distal esophagus. Scope was withdrawn and removed. The patient was taken to the recovery room in good condition. CONCLUDING DIAGNOSIS: Marked improvement of gastric neoplasm but persistence of friable tumor in the upper part of the stomach not encumbered in the GE junction proper. PLAN: She will continue with palliative chemotherapy with Dr. Trevizo and return to the ongoing care of Dr. Trevizo and Dr. Ramirez. David Yang MD JM/MODL /[id number] cc: MD Dr. James Quigley Electronically Signed By: DAVID YANG MD 03/05/25 1100 PATIENT NAME: ANIBAL TATE OPERATIVE REPORT DATE OF : 60 REPORT #: [id number] PHYSICIAN: DAVID YANG MD PCP: JB RAMIREZ MD REPORT IS CONFIDENTIAL AND NOT TO BE RELEASED WITHOUT AUTHORIZATION [facility] [address] [facility] [place], [place] [address] Signed Copies: LEXII TREVIZO MD ~ Electronically Signed By: DAVID YANG MD 03/05/25 1100 PATIENT NAME: ANIBAL TATE OPERATIVE REPORT DATE OF : 60 REPORT #: [id number] PHYSICIAN: DAVID YANG MD PCP: JB RAMIREZ MD REPORT IS CONFIDENTIAL AND NOT TO BE RELEASED WITHOUT AUTHORIZATION
--- NOTE | 2025-03-07 16:56 | PATH ---
[facility] [address] [place], [place] [address] Signed THIS IS AN ADDENDUM REPORT SPECIMEN(S): A DUODENAL BIOPSY SPECIMEN(S): B ANTRUM/PYLORUS BIOPSY SPECIMEN(S): C GASTRIC TUMOR BIOPSY SPECIMEN(S): D LOWER ESOPHAGUS BIOPSY SPECIMEN SOURCE: A. DUODENAL BIOPSY B. ANTRUM/PYLORUS BIOPSY C. GASTRIC TUMOR BIOPSY D. LOWER ESOPHAGUS BIOPSY CLINICAL HISTORY: History of adenocarcinoma of stomach. Persistent gastric tumor, but improved. FINAL PATHOLOGIC DIAGNOSIS: A. Duodenal biopsy: - Benign duodenal mucosa, negative for specific diagnostic abnormality. B. Antrum/pylorus biopsy: - Gastric mucosa with mild superficial chronic gastritis. - A Helicobacter pylori immunostain is negative for organisms. C. Gastric tumor biopsy: - Invasive poorly differentiated carcinoma. - See Comment. D. Lower esophagus biopsy: - Benign esophageal epithelium, negative for increased epithelial eosinophils. - With focal scant glandular mucosa, negative for specialized intestinal metaplasia or dysplasia. COMMENT: The biopsy reveals an invasive poorly differentiated carcinoma within specimen C (labeled "gastric tumor biopsy"). The tumor is consistent with the previous gastric tumor (cytokeratin AE1/3 positive and CDX2 positive). As part of [employer]' Quality Improvement Program, this case was reviewed by another member of our pathology staff. JVR:casandra MICROSCOPIC EXAMINATION: Histologic sections of all submitted blocks are examined by light microscopy. PATIENT NAME: BEBETOANIBAL DANA PATHOLOGY DATE OF : 60 REPORT #: [id number] PHYSICIAN: MAR CARRENO PCP: JB LAST MD REPORT IS CONFIDENTIAL AND NOT TO BE RELEASED WITHOUT AUTHORIZATION [facility] [address] [place], [place] [address] Signed These findings, together with the gross examination, support the pathologic diagnosis. A Helicobacter pylori immunostain is performed with appropriate positive and negative controls on block B1 and is negative for organisms. Immunostains are performed with appropriate controls on block C1 and show the following: - Cytokeratin AE1/3: Positive in tumor cells. - CDX2: Positive in tumor nuclei. JVR:smn GROSS DESCRIPTION: A. The specimen, labeled and designated "Post, duodenal biopsy," is received in formalin and consists of two lou soft tissue fragments, ranging from 0.2-0.3 cm. Entirely submitted in (A1). B. The specimen, labeled and designated "Post, antrum/pylorus biopsy," is received in formalin and consists of two lou soft tissue fragments, ranging from 0.3-0.4 cm. Entirely submitted in (B1). C. The specimen, labeled and designated "Post, gastric tumor biopsy," is received in formalin and consists of four lou soft tissue fragments, ranging from 0.2-0.3 cm. Entirely submitted in (C1). D. The specimen, labeled and designated "Post, lower esophagus biopsy," is received in formalin and consists of three lou soft tissue fragments, ranging from 0.1-0.4 cm. Entirely submitted in (D1). VB (under the direct supervision of a pathologist) The Gross Description was prepared using a voice recognition system. The report was reviewed for accuracy; however, sound-alike word errors, addition and/or deletions may occur. If there is any question about this report, please contact Client Services. ADDITIONAL NOTES: Immunohistochemical and/or in situ hybridization studies were performed on this case with the appropriate positive controls that react as expected. This test was developed and its performance characteristics determined by [facility]. It has not been cleared or approved by the U.S. Food and Drug Administration. The FDA has determined that such clearance or approval is not necessary. This test is used for clinical purposes. It should not be regarded as investigational or for research. [facility] [facility] is certified under the Clinical Laboratory Improvement Amendments of 1988 (CLIA) as qualified to perform high complexity clinical laboratory testing. This assay has not been validated for specimens that have PATIENT NAME: ANIBAL TATE PATHOLOGY DATE OF : 60 REPORT #: [id number] PHYSICIAN: MAR CARRENO PCP: JB LAST MD REPORT IS CONFIDENTIAL AND NOT TO BE RELEASED WITHOUT AUTHORIZATION [facility] [address] [place], [place] [address] Signed been decalcified. PERFORMING LABORATORY: Technical component was performed by [facility], [address] [place] [id number] (CLIA# [id number]). Professional interpretation was performed by [email or web address], [address] [place] [address]., [place] [address] (CLIA#: [id number]). REASON FOR ADDENDUM: To report the results of historic microsatellite instability testing by immunohistochemistry. ADDENDUM COMMENT: Microsatellite instability testing performed on case [id number] reported a "normal" pattern. JVR:clv Diagnostician: Jamil Mcallister MD Pathologist Electronically Signed 03/07/2025 Copies: ~ PATIENT NAME: ANIBAL TATE DANA PATHOLOGY DATE OF : 60 REPORT #: [id number] PHYSICIAN: MAR PATHOLOGY PCP: JB LAST MD REPORT IS CONFIDENTIAL AND NOT TO BE RELEASED WITHOUT AUTHORIZATION
== END 2025-03-01 08:45 | disposition home or self-care (01) ==
LOC: DS 06:00
PROVIDERS: ATTEND Surgery
PROC: 0DB68ZX Excision of Stomach, Via Natural or Artificial Opening Endoscopic, Diagnostic (ICD-10-PCS; principal; 2025-03-01 07:30)
DX: C16.9 Malignant neoplasm of stomach, unspecified (principal); K29.50 Unspecified chronic gastritis without bleeding; I10 Essential (primary) hypertension; Z98.890 Other specified postprocedural states; Z79.899 Other long term (current) drug therapy
CPT/HCPCS: 99153; G0500; J2250; J3010; J7121

== ENCOUNTER 2025-09-23 07:06 | Day surgery (SDC) | payer MEDICARE, OTHER ==
[~2025-09-23] VITALS: Ht 165.1 cm; Wt 50.4 kg
[~2025-09-23 07:06] MED LIST changes: +CALCIUM500 MG PO; +GLUTAMINE PO; +IBLOOD GLUCOSE TEST STRIP 1 EA TEST VI PRN; +LACTATED RINGER'S 1,000 ML IV SCH; +LIDOCAINE HCL 1% 5 ML SDV INJ ONE; +LIDOCAINE HCL 4% 50 ML BTL TOP SCH; -MIDAZOLAM HCL 5 MG/5 ML VIAL IV PRN; +VITAMIN B650 MG PO; -fentaNYL citrate 100 MCG/2 ML VIAL IV PRN
[2025-09-23 07:25] VITALS: BP 123/77
[2025-09-23] MEDS ORDERED: MIDAZOLAM HCL 5 MG/5 ML VIAL ONE (08:16)
[2025-09-23] MEDS ORDERED: fentaNYL citrate 100 MCG/2 ML VIAL ONE (08:17)
--- NOTE | 2025-09-23 09:00 | NUR ---
09/23/25 0900 Roopa Rodriguez 0855: PT ARRIVES TO PACU NON REACTIVE/NON AROUSAL. PT IS CONNECTED TO MONITORS.
[2025-09-23 09:26] VITALS: BP 127/75
--- NOTE | 2025-09-25 12:50 | OR ---
[facility] [facility] [address] [address] [place], [place] [address] Signed DATE OF OPERATION: 09/23/2025 SURGEON: David Yang MD PREOPERATIVE DIAGNOSES: 1. History of stage IV gastric cancer with metastatic disease to the peritoneal cavity, diagnosis May 2024. 2. Ongoing palliative chemotherapy (Dr. Jax Valdez). POSTOPERATIVE DIAGNOSES: 1. Persistent gastric neoplasm proximal and mid body of stomach. Friability of tumor. 2. Normal duodenum and distal esophagus. PROCEDURE: Esophagogastroduodenoscopy with biopsy. ANESTHESIA: Intravenous sedation; fentanyl 100 mcg, Versed at 3 mg. INDICATION: 65-year-old woman is a patient of Dr. Jb Ramirez and Dr. Jax Valdez and was diagnosed with advanced gastric cancer more than a year ago. She underwent palliative chemotherapy under the direction of Dr. Valdez, which has been beneficial for her symptom control. Her original diagnosis was in May 2024. A PET scan performed in May 2025 showed localized uptake in the lateral wall of the gastric fundus. Clinical examination currently does show positive Virchow lymph node (left base of neck area). She has no ascites and has had good oral intake recently. She remains thin, though she was put on 4 pounds since her last evaluation and now is 111 pounds. She is referred by Dr. Valdez for upper endoscopy to assess disease status which may guide future site of chemotherapy interventions. The risk of bleeding, infection, and perforation were reviewed with her, she understands and wished to proceed. FINDINGS: Neoplasm was persistent in the upper stomach and mid body of stomach, though it was improved. It was definitely friable as well however. The distal antrum, pylorus and duodenum were normal as was the GE junction at the esophagus. CLOtest was negative 15 minutes postprocedure. DESCRIPTION OF PROCEDURE: The patient was brought to the endoscopy suite and given topical lidocaine Electronically Signed By: DAVID YANG MD 09/25/25 1250 PATIENT NAME: ANIBAL TATE OPERATIVE REPORT DATE OF : 60 REPORT #: [id number] PHYSICIAN: DAVID YANG MD PCP: JB RAMIREZ MD REPORT IS CONFIDENTIAL AND NOT TO BE RELEASED WITHOUT AUTHORIZATION [facility] [address] [place], [place] [address] Signed hypopharyngeal anesthesia and placed in lateral decubitus position. She was given intravenous sedation to the point of slurred speech and nystagmus with full cardiopulmonary monitoring. A bite block was placed. An Olympus video upper endoscope was passed in the hypopharynx. The vocal cords were normal. Scope was advanced to the esophagus without problem throughout its length, it appeared normal. Upon entry into the stomach, the proximal stomach did have findings consistent with neoplasm, which was friable, though not actively bleeding otherwise. Scope was advanced beyond this neoplasm to the antrum, which was free of disease. The pylorus was normal. Scope was passed through it into the duodenum, which was normal. Biopsies were not taken of the duodenum. The antrum was biopsied and retroflexed view undertaken confirming tumor in the distal mid stomach. Photographs were taken. Scope was withdrawn and biopsies taken of the mid esophagus, stomach and the proximal stomach where neoplastic change was noted. The tumor was friable. The scope was withdrawn to the distal esophagus. Biopsy obtained of normal-appearing distal esophageal mucosa. Further withdrawal of scope showed no other findings of note. She was taken to recovery room in good condition. CONCLUDING DIAGNOSIS: Persistent neoplasm of stomach as depicted in PET scan. She remains with stage IV disease with a clinically positive Virchow lymph node, left supraclavicular base of neck area. PLAN: Chemotherapy decisions will be made with Dr. Valdez and Dr. Ramirez for ongoing palliation, which appears to have been useful thus far. MD CLARA Venegas/MODL /[id number] cc: MD Jax Foreman MD Electronically Signed By: DAVID YANG MD 09/25/25 1250 PATIENT NAME: ANIBAL TATE OPERATIVE REPORT DATE OF : 60 REPORT #: [id number] PHYSICIAN: DAVID YANG MD PCP: JB RAMIREZ MD REPORT IS CONFIDENTIAL AND NOT TO BE RELEASED WITHOUT AUTHORIZATION [facility] [address] [place] [address] Signed Copies: JB RAMIREZ MD, ROBERT C MD ~ Electronically Signed By: DAVID YANG MD 09/25/25 1250 PATIENT NAME: ANIBAL TATE OPERATIVE REPORT DATE OF : 60 REPORT #: [id number] PHYSICIAN: DAVID YANG MD PCP: JB RAMIREZ MD REPORT IS CONFIDENTIAL AND NOT TO BE RELEASED WITHOUT AUTHORIZATION
== END 2025-09-23 09:37 | disposition home or self-care (01) ==
LOC: OPS 07:06 → DS 07:06 → OPS 08:00 → DS 08:45 → OPS 09:37
PROVIDERS: ATTEND Surgery
PROC: 0DB38ZX Excision of Lower Esophagus, Via Natural or Artificial Opening Endoscopic, Diagnostic (ICD-10-PCS; 2025-09-23)
PROC: 0DB68ZX Excision of Stomach, Via Natural or Artificial Opening Endoscopic, Diagnostic (ICD-10-PCS; principal; 2025-09-23 08:00)
DX: C16.9 Malignant neoplasm of stomach, unspecified (principal); K29.50 Unspecified chronic gastritis without bleeding; I10 Essential (primary) hypertension; E03.9 Hypothyroidism, unspecified; Z79.890 Hormone replacement therapy
CPT/HCPCS: 99153; G0500; J2250; J3010; J7121